=== PATIENT | male | born 1980 | race Caucasian/White ===

== ENCOUNTER → 2017-04-04 | Outpatient (CLI) | payer BC ==
[~2017-04-04] MED LIST: ASPI81TA28 PO; FEXO1TAB49 PO
--- NOTE | 2017-04-04 07:28 | DIAGNOSTIC IMAGING REPORT ---
ABDOMINAL ULTRASOUND, RIGHT UPPER QUADRANT HISTORY: Abdominal pain. COMPARISON: None. FINDINGS: The liver is sonographically normal. There are no gallstones. There is no biliary ductal dilatation. The pancreas is obscured by overlying bowel gas. There is no right hydronephrosis. IMPRESSION: 1. No gallstones or biliary ductal dilatation. 2. Nonvisualization of the pancreas due to overlying bowel gas. Electronically signed by: Alex Kelsey M.D. 04/04/2017 7:27 AM Dictated Date/Time: 04/04/2017 7:25 AM
== END | disposition home or self-care (01) ==
LOC: C.ULTR 06:54
PROVIDERS: ATTEND Nurse Practitioner Family
DX: R10.11 Right upper quadrant pain (principal); R74.8 Abnormal levels of other serum enzymes